=== PATIENT | female | born 1980 | race Caucasian/White ===

== ENCOUNTER 2022-02-26 08:16 | Day surgery (SDC) | payer OTHER ==
[2022-02-21 10:18] VITALS: BMI 41.1
[2022-02-26] MEDS ORDERED: PROPOFOL 100 ML ONE (08:57)
[2022-02-26 13:19] VITALS: TEMP 97.9
[2022-02-26 13:23] VITALS: BP 123/72; PULSE 67; RESP 17
== END 2022-02-26 10:55 | disposition home or self-care (01) ==
LOC: FASU-ENDO 08:16
PROVIDERS: ATTEND Internal Medicine Gastroenterology
PROC: 0DB98ZX Excision of Duodenum, Via Natural or Artificial Opening Endoscopic, Diagnostic (ICD-10-PCS; 2022-02-26)
PROC: 0DB78ZX Excision of Stomach, Pylorus, Via Natural or Artificial Opening Endoscopic, Diagnostic (ICD-10-PCS; 2022-02-26)
PROC: 0DJD8ZZ Inspection of Lower Intestinal Tract, Via Natural or Artificial Opening Endoscopic (ICD-10-PCS; principal; 2022-02-26 09:20)
DX: R10.9 Unspecified abdominal pain (principal)
CPT/HCPCS: 84703; 88305-TC; 88342-TC